=== PATIENT | female | born 1980 | race Caucasian/White ===

== ENCOUNTER 2023-04-05 09:24 | Emergency (ER) | payer OTHER ==
[~2023-04-05] VITALS: Ht 152.4 cm; Wt 79.5 kg
[2023-04-05] MEDS ORDERED: LIDOCAINE/PF 1% 2 ML VIAL IM ONE (10:00)
[2023-04-05] MEDS ORDERED: CefTRIAXone SODIUM 1 GM/VIAL IM ONE (10:00)
[2023-04-05] MEDS ORDERED: KETOROLAC TROMETHAMINE 60 MG/2 ML VIAL IM ONE (10:00)
[2023-04-05 13:08] LABS: BASOPHILS % (AUTO) 0.6 % (0.0-2.0); EOSINOPHILS % (AUTO) 0.1 % (1.0-6.0); HEMATOCRIT 41.1 % (36-46); HEMOGLOBIN 13.8 g/dL (12.0-16.0); LYMPHOCYTES # (AUTO) 1.1 K/uL (1.0-4.8); LYMPHOCYTES % (AUTO) 11.3 % (22.0-44.0); MEAN CORPUSCULAR HEMOGLOBIN 30.8 pg (26.0-34.0); MEAN CORPUSCULAR HGB CONC 33.4 G/dL (31.0-37.0); MEAN CORPUSCULAR VOLUME 92 fL (80-100); MONOCYTES # (AUTO) 0.4 K/uL (0.1-1.0); MONOCYTES % (AUTO) 4.6 % (2.0-9.0); NEUTROPHILS # (AUTO) 8.1 K/uL (1.8-7.7); NEUTROPHILS % (AUTO) 83.4 % (40.0-70.0); PLATELET COUNT (AUTO) 345 K/uL (150-450); RED BLOOD CELL COUNT(AUTO) 4.46 MIL/uL (4.00-5.20); RED CELL DISTRIBUTION WIDTH 13.4 % (11.5-14.5)
[2023-04-05 13:20] LABS: ANION GAP 9 mmol/L (8-16); CALCIUM, TOTAL 8.2 mg/dL (8.8-10.5); CARBON DIOXIDE 26 mmol/L (22-29); CHLORIDE 103 mmol/L (98-107); CREATININE 0.58 mg/dL (0.60-1.30); GLOMERULAR FILTR. RATE CALC > 60 mL/min (>60); GLUCOSE,RANDOM 105 mg/dL (70-110); POTASSIUM 4.1 mmol/L (3.5-5.1); SODIUM SERUM 138 mmol/L (136-145)
[2023-04-05 13:26] LABS: ALANINE AMINOTRANSFERASE 16 U/L (12-78); ALKALINE PHOSPHATASE 90 U/L (46-116); ASPARTATE AMINOTRANSFERASE 13 U/L (15-37); BILIRUBIN,TOTAL 1.1 mg/dL (0.1-1.0)
[2023-04-05] MEDS ORDERED: CLIN300C58 PO (15:28)
[2023-04-05] MEDS ORDERED: PERCT PO (15:28)
[2023-04-05] MEDS ORDERED: PENI500T2 PO (15:28)
[2023-04-05 15:49] VITALS: BP 105/57
== END 2023-04-05 15:51 | disposition home or self-care (01) ==
LOC: EMS 09:25
DX: K04.7 Periapical abscess without sinus (principal); K80.20 Calculus of gallbladder without cholecystitis without obstruction; F17.210 Nicotine dependence, cigarettes, uncomplicated
CPT/HCPCS: 99285; 70486; 80053; 84484; 85025; 36415; 93005; 96372; J0696; J1885; J3490